=== PATIENT | male | born 2000 | race African-American/Black ===

== ENCOUNTER 2023-07-19 14:11 | Inpatient (IN) ==
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
[2023-07-19] MEDS ORDERED: ACETAMINOPHEN 325 MG TAB PO STA (16:01)
--- NOTE | 2023-07-19 16:04 | XRay Report ---
XR finger(s) LT min 2V HISTORY: 23 years-old Male L index finger acute pain of the left second finger COMPARISON: None TECHNIQUE: 3 views of the left second finger FINDINGS: No acute fracture, dislocation or opaque foreign body. Unremarkable soft tissues. IMPRESSION: Normal exam. ACT 112: Negative or not required by law. The above report was generated using voice recognition software. It may contain grammatical, syntax o r spelling errors. Electronically signed by: Seth Rodriguez M.D. 07/19/2023 4:02 PM
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
[2023-07-19 17:24] LABS: Basophils # (auto) 0.04 K/uL (0.00-0.20); Basophils % (auto) 0.2 %; Eosinophils # (auto) 0.01 K/uL (0.00-0.50); Eosinophils % (auto) 0.1 %; Hematocrit (blood only) 42.9 % (42.0-52.0); Hemoglobin 15.5 g/dl (14.0-18.0); Immature Granulocytes # (auto) 0.05 K/uL (0.01-0.20); Immature Granulocytes % (auto) 0.3 %; Lymphocytes % (auto) 5.4 %; Mean Corpuscular Hemoglobin 31.2 pg (25.0-34.0); Mean Corpuscular Hgb Conc 36.1 g/dL (32.0-36.0); Mean Corpuscular Volume 86.3 fL (80.0-100.0); Monocytes # (auto) 0.92 K/uL (0.11-0.59); Monocytes % (auto) 5.5 %; Neutrophils # (auto) 14.85 K/uL (1.40-6.50); Neutrophils % (auto) 88.5 %; Platelet Count 271 K/uL (130-400); RDW Coefficient of Variation 12.2 % (11.5-14.5); RDW Standard Deviation 38.8 fL (36.4-46.3); Red Blood Count 4.97 M/uL (4.70-6.10); White Blood Count 16.77 K/ul (4.8-10.8)
[2023-07-19 17:33] LABS: Alanine Aminotransferase 21 U/L (7-52); Albumin Globulin Ratio 1.5 (0.9-2); Alkaline Phosphatase 65 U/L (34-104); Anion Gap 7 (3-11); Aspartate Aminotransferase 31 U/L (13-39); BUN Creatinine Ratio 11.3 (10-20); Bilirubin,Total 0.6 mg/dl (0.2-1.0); Blood Urea Nitrogen 11 mg/dl (6-23); Calcium 10.2 mg/dl (8.6-10.3); Carbon Dioxide 29 mmol/L (21-32); Chloride 99 mmol/L (98-107); Est GFR (Non-African American) 109.6 ml/min; Globulin 3.3 gm/dl (2.5-4.0); Glucose 96 mg/dl (70-99(Fasting)); Potassium 4.7 mmol/L (3.5-5.1); Sodium 135 mmol/L (136-145); Total Protein 8.3 gm/dl (6.0-8.3)
[2023-07-19] MEDS ORDERED: OPTIRAY 320 100ml IV ONE (18:03)
[2023-07-19] MEDS ORDERED: DOXYCYCLINE HYCLATE 100 MG CAP PO STA (18:08)
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
[2023-07-19] MEDS ORDERED: ONDANSETRON INJ 2 MG/ML 2 ML VIAL IV STA (18:44)
[2023-07-19] MEDS ORDERED: MoRPHine SULFATE 4 MG/ML 1 ML CARP\\VIAL IV STA ×3 (18:44→23:51)
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
[2023-07-19] MEDS: oxyCODONE HCL IR 5 MG TAB (IMMEDIATE RELEASE) PO PRN (21:42)
[2023-07-19] MEDS: ACETAMINOPHEN 500 MG TAB PO SCH (21:42)
[2023-07-19] MEDS: traZODone HCL 50 MG TAB PO SCH (21:42)
[2023-07-19] MEDS: SERTRALINE HCL 50 MG TABLET PO SCH (21:42)
[2023-07-19] MEDS: FEXOFENADINE HCL 180 MG TAB PO SCH (23:33)
[2023-07-20] MEDS: ACETAMINOPHEN 500 MG TAB PO SCH ×3 (05:27→22:27)
[2023-07-20 07:06] VITALS: RESP 16
[2023-07-20 07:25] LABS: Basophils # (auto) 0.03 K/uL (0.00-0.20); Basophils % (auto) 0.3 %; Eosinophils # (auto) 0.28 K/uL (0.00-0.50); Hematocrit (blood only) 40.2 % (42.0-52.0); Hemoglobin 14.3 g/dl (14.0-18.0); Immature Granulocytes # (auto) 0.03 K/uL (0.01-0.20); Immature Granulocytes % (auto) 0.3 %; Lymphocytes # (auto) 1.71 K/uL (1.20-3.40); Mean Corpuscular Hemoglobin 31.6 pg (25.0-34.0); Mean Corpuscular Hgb Conc 35.6 g/dL (32.0-36.0); Mean Corpuscular Volume 88.9 fL (80.0-100.0); Mean Platelet Volume 8.4 fL (9.4-12.4); Monocytes # (auto) 0.97 K/uL (0.11-0.59); Monocytes % (auto) 10.2 %; Neutrophils # (auto) 6.47 K/uL (1.40-6.50); Neutrophils % (auto) 68.2 %; Platelet Count 256 K/uL (130-400); RDW Coefficient of Variation 12.3 % (11.5-14.5); RDW Standard Deviation 40.4 fL (36.4-46.3); Red Blood Count 4.52 M/uL (4.70-6.10); White Blood Count 9.49 K/ul (4.8-10.8)
[2023-07-20] MEDS: oxyCODONE HCL IR 5 MG TAB (IMMEDIATE RELEASE) PO PRN ×3 (07:41→16:36)
[2023-07-20] MEDS: DOXYCYCLINE HYCLATE 100 MG CAP PO SCH ×2 (07:41→20:01)
[2023-07-20 08:05] LABS: Anion Gap 4 (3-11); Calcium 9.6 mg/dl (8.6-10.3); Carbon Dioxide 31 mmol/L (21-32); Chloride 103 mmol/L (98-107); Potassium 4.4 mmol/L (3.5-5.1); Sodium 138 mmol/L (136-145)
[2023-07-20 08:11] LABS: BUN Creatinine Ratio 10.5 (10-20); Blood Urea Nitrogen 11 mg/dl (6-23); Est GFR (African American) 115.4 ml/min; Est GFR (Non-African American) 99.6 ml/min; Glucose 89 mg/dl (70-99(Fasting))
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
[2023-07-20] MEDS ORDERED: KETOROLAC 30 MG/ML VIAL IV PRN (17:14)
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
[2023-07-20] MEDS: SODIUM CHLORIDE 0.9% 1,000 ML IV SCH (20:01)
[2023-07-20] MEDS: traZODone HCL 50 MG TAB PO SCH (20:02)
[2023-07-20] MEDS: SERTRALINE HCL 50 MG TABLET PO SCH (20:02)
[2023-07-20] MEDS: FEXOFENADINE HCL 180 MG TAB PO SCH (20:02)
[2023-07-20] MEDS: MoRPHine SULFATE 4 MG/ML 1 ML CARP\\VIAL IV PRN (20:03)
[2023-07-20] MEDS: Patient's HEIGHT &/or WEIGHT Needed SCH ×3 (20:03→23:50)
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
[2023-07-21] MEDS: ACETAMINOPHEN 500 MG TAB PO SCH ×2 (05:34→13:49)
[2023-07-21] MEDS: MoRPHine SULFATE 4 MG/ML 1 ML CARP\\VIAL IV PRN (05:42)
[2023-07-21 08:00] VITALS: PULSE 70
[2023-07-21] MEDS: DOXYCYCLINE HYCLATE 100 MG CAP PO SCH (09:09)
[2023-07-21] MEDS: SODIUM CHLORIDE 0.9% 1,000 ML IV SCH (09:14)
[2023-07-21] MEDS ORDERED: KETOROLAC 30 MG/ML VIAL IV PRN (11:39)
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
--- NOTE | 2023-07-21 12:22 | XRay Report ---
XR hand RT min 3V routine, XR hand LT min 3V routine CLINICAL HISTORY: trauma, pain TECHNIQUE: 3 views of the bilateral hands were obtained. Comparison: None available at the time of this dictation. FINDINGS: There is no evidence of an acute fracture. Joint spaces are well-preserved. No soft tissue abnormalit y is seen. IMPRESSION: No evidence of acute bony injury. ACT 112: Negative or not required by law. Electronically signed by: Rufus Levin M.D. 07/21/2023 12:21 PM
--- NOTE | 2023-07-21 13:51 | Magnetic Resonance Report ---
MR brain wo con HISTORY: 23 years-old Male head trauma, headaches, R hand numbness acute headache COMPARISON: Head CT 07/20/2023 TECHNIQUE: Multiplanar multisequence MRI of the brain was obtained without the use of IV contrast. FINDINGS: No restricted diffusion. Midline structures are unremarkable. Mild adenoid tonsillar enlargement. No acute intracranial hemorrhage, midline shift, abnormal extra-axial collection, hydrocephalus or intra -axial mass. No pathologic blooming artifact. Normal volume of the brain parenchyma. There are a few punctate T2/FLAIR hyperintense foci within the subcortical white matter of the frontal lobes, likely of no clinical significance. Cerebral venous sinuses and major arterial flow voids appear patent. Mild mucosal thickening of the p aranasal sinuses. Skull, orbits and soft tissues are unremarkable. IMPRESSION: No acute intracranial abnormality. ACT 112: Negative or not required by law. The above report was generated using voice recognition software. It may contain grammatical, syntax o r spelling errors. Electronically signed by: Seth Rodriguez M.D. 07/21/2023 1:48 PM
--- NOTE | 2023-07-21 15:10 | Magnetic Resonance Report ---
CLINICAL HISTORY: head/neck trauma, R hand numbness TECHNIQUE: MRI of the cervical spine is performed utilizing various T1 and T2 sequences in the axial and sagittal planes. IV contrast was not administered for this examination. Comparison: None available at the time of this dictation. FINDINGS: The alignment is anatomical. C2-C3: Unremarkable. C3-C4: Unremarkable. C4-C5: Unremarkable. C5-C6: Unremarkable. C6-C7: Unremarkable. C7-T1: Unremarkable. The spinal ligaments are intact, without evidence of disruption or abnormal signal intensity. The spi nal cord is normal in signal intensity and there is no evidence of cord edema. There is no evidence o f an extradural, intradural, extramedullary or intramedullary lesion. Visualized soft tissues are nor mal. Visualized brain parenchyma is normal. IMPRESSION: No evidence of cord compression or significant neuroforaminal narrowing. ACT 112: Negative or not required by law. Electronically signed by: Rufus Levin M.D. 07/21/2023 3:09 PM
[2023-07-21 15:57] VITALS: BP 139/70; TEMP 99; O2SAT 99
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
== END 2023-07-21 17:09 | DRG 125 ==
LOC: ED 14:11 → 3W 19:01 → SUATTDRO 19:01 → 3W 21:10 → 3E 07-20 13:16
DX: Y92.143 Cell of prison as the place of occurrence of the external cause; S06.0X0A Concussion without loss of consciousness, initial encounter; R10.84 Generalized abdominal pain; G89.11 Acute pain due to trauma; R07.89 Other chest pain; R51.9 Headache, unspecified; F41.9 Anxiety disorder, unspecified; M25.551 Pain in right hip; S00.93XA Contusion of unspecified part of head, initial encounter; Z88.0 Allergy status to penicillin; Y35.91XA Legal intervention, means unspecified, law enforcement official injured, initial encounter; M25.552 Pain in left hip; Z79.899 Other long term (current) drug therapy; S02.31XA Fracture of orbital floor, right side, initial encounter for closed fracture; M54.89 Other dorsalgia

== ENCOUNTER 2023-10-06 14:55 | Inpatient (IN) ==
[2023-10-06 16:14] LABS: Anion Gap 6 (3-11); Calcium 9.8 mg/dl (8.6-10.3); Carbon Dioxide 29 mmol/L (21-32); Chloride 103 mmol/L (98-107); Potassium 4.2 mmol/L (3.5-5.1); Sodium 138 mmol/L (136-145)
[2023-10-06 16:15] LABS: Basophils # (auto) 0.03 K/uL (0.00-0.20); Basophils % (auto) 0.5 %; Eosinophils # (auto) 0.16 K/uL (0.00-0.50); Eosinophils % (auto) 2.5 %; Hematocrit (blood only) 43.4 % (42.0-52.0); Hemoglobin 15.3 g/dl (14.0-18.0); Immature Granulocytes # (auto) 0.01 K/uL (0.01-0.20); Immature Granulocytes % (auto) 0.2 %; Lymphocytes # (auto) 1.38 K/uL (1.20-3.40); Lymphocytes % (auto) 21.7 %; Mean Corpuscular Hemoglobin 30.7 pg (25.0-34.0); Mean Corpuscular Hgb Conc 35.3 g/dL (32.0-36.0); Mean Platelet Volume 8.9 fL (9.4-12.4); Monocytes # (auto) 0.51 K/uL (0.11-0.59); Neutrophils # (auto) 4.28 K/uL (1.40-6.50); Neutrophils % (auto) 67.1 %; Platelet Count 289 K/uL (130-400); RDW Coefficient of Variation 11.5 % (11.5-14.5); RDW Standard Deviation 37.1 fL (36.4-46.3); Red Blood Count 4.99 M/uL (4.70-6.10); White Blood Count 6.37 K/ul (4.8-10.8)
--- NOTE | 2023-10-06 16:15 | XRay Report ---
XR knee LT 4V HISTORY: 23 years-old Male L knee pain acute left knee pain COMPARISON: None TECHNIQUE: 3 views of the left knee FINDINGS: There is mild medial compartment osteoarthritis. 8 mm lucent focus of the medial femoral condyle. Sma ll joint effusion. No acute fracture or dislocation. IMPRESSION: 1. No acute fracture or dislocation. 2. Mild medial compartment osteoarthritis with possible medial femoral condylar osteochondral defect. 3. Small joint effusion. ACT 112: Negative or not required by law. The above report was generated using voice recognition software. It may contain grammatical, syntax o r spelling errors. Electronically signed by: Seth Rodriguez M.D. 10/06/2023 4:14 PM
--- NOTE | 2023-10-06 16:16 | CT Scan Report ---
CT OF THE HEAD WITHOUT CONTRAST CLINICAL HISTORY: syncope vs seizure COMPARISON STUDY: MRI of the brain July 21, 2023. Head CT September 08, 2023. TECHNIQUE: Helical axial images of the head were obtained without IV contrast. Automated exposure con trol was utilized for the study. A dose lowering technique was utilized adhering to the principles o f ALARA. FINDINGS: No acute intracranial hemorrhage, midline shift or mass effect is present. The ventricular system is unremarkable. The basal cisterns are patent. No extra-axial collections are present. There are no findings to suggest acute dural sinus thrombosis or acute territorial infarct. Small left fore head contusion is present. There is no calvarial fracture. Mucosal thickening within visualized porti ons of the sinuses is unchanged. IMPRESSION: 1. No acute intracranial findings. 2. Small left forehead contusion. No calvarial fracture. ACT 112: Negative or not required by law. Electronically signed by: Louis Hall M.D. 10/06/2023 4:15 PM
[2023-10-06 16:20] LABS: BUN Creatinine Ratio 12.4 (10-20); Blood Urea Nitrogen 13 mg/dl (6-23); Est GFR (African American) 115.4 ml/min; Est GFR (Non-African American) 99.6 ml/min; Glucose 80 mg/dl (70-99(Fasting))
[2023-10-06 16:23] LABS: INR 1.1 (0.9-1.1); Partial Thromboplastin Ratio 0.9; Partial Thromboplastin Time 26 Seconds (21-31); Prothrombin Time 11.6 Seconds (9.0-12.0); Troponin I High Sensitivity < 2.3 pg/ml (0-20)
--- NOTE | 2023-10-06 16:28 | CT Scan Report ---
CT cervical spine wo con CLINICAL HISTORY: syncope vs seziure TECHNIQUE: Multidetector row helical CT of the cervical spine was performed without administration of intravenous contrast. Coronal and sagittal reformations were obtained. Automated dose lowering techn iques and/or adjustment according to patient size were utilized for this exam. Comparison: Comparison is made to CT cervical spine 08/31/2023 FINDINGS: No acute fractures or subluxations are identified. Minimal degenerative changes are seen. The alignme nt is normal. Soft tissues are unremarkable. IMPRESSION: No evidence of acute bony injury. ACT 112: Negative or not required by law. Electronically signed by: Rufus Levin M.D. 10/06/2023 4:27 PM
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
[2023-10-06] MEDS ORDERED: ONDANSETRON INJ 2 MG/ML 2 ML VIAL IV PRN (17:35)
[2023-10-06] MEDS ORDERED: POLYETHYLENE (MIRALAX) 17 GM PACK PO PRN (17:35)
--- NOTE | 2023-10-06 20:07 | Electrocardiogram Report ---
Test Reason : Blood Pressure : / mmHG Vent. Rate : 083 BPM Atrial Rate : 083 BPM P-R Int : 164 ms QRS Dur : 088 ms QT Int : 366 ms P-R-T Axes : 068 089 071 degrees QTc Int : 430 ms Normal sinus rhythm Normal ECG When compared with ECG of 08-SEP-2023 16:41, Nonspecific T wave abnormality no longer evident in Inferior leads Confirmed by Carl Corcoran ([id number]) on 10/06/2023 8:07:15 PM Referred By: Confirmed By:Nirmal Corcoran
[2023-10-06] MEDS: MIRTAZAPINE TAB 15 MG TAB PO SCH (20:45)
[2023-10-06] MEDS: NAPROXEN 375 MG TAB PO PRN (20:45)
[2023-10-06] MEDS: OLANZapine 5 MG TABLET PO SCH (20:45)
[2023-10-06] MEDS: GADOBUTROL 65ML VIAL IV ONE (23:39)
--- NOTE | 2023-10-07 00:05 | Emergency Department Note ---
History of Present Illness General Chief complaint: Fall Stated complaint: SEIZURE, FALL Time Seen by Provider: 10/06/23 15:12 History of Present Illness Provider complaint: Syncope versus seizure Maximum Pain Intensity: 10 23-year-old incarcerated male presents emergency department for syncope versus seizure. Earlier today, the patient states he was working out doing squats and [employer] when then he felt his left knee started hurting. Patient states the next he knew he woke up on the floor. Patient states he is not sure what happened. Patient reports that inmates around him thought he was having a seizure and was shaking with seizure-like activity. Patient is currently reporting headache and neck pain. No tongue bite. No urinary incontinence. No chest pain or difficulty breathing. Patient reports a history of seizure disorder. Home Medications Medication Instructions Recorded Confirmed Type mirtazapine 30 mg tablet 30 mg PO HS 09/08/23 10/06/23 History olanzapine 5 mg tablet 5 mg PO HS 09/08/23 10/06/23 History ibuprofen 600 mg tablet 600 mg PO TID PRN Pain 10/06/23 10/06/23 History meclizine 25 mg chewable tablet 25 mg PO TID PRN Vertigo 10/06/23 10/06/23 History Allergies Allergy/AdvReac Type Severity Reaction Status Date / Time Penicillins Allergy Unknown CHILDHOOD Verified 10/06/23 17:22 Past Med/Surg History Medical History Mood disorder Head injury due to trauma Closed fracture of right orbital floor Hematoma of right parietal scalp Contusion of head History of marijuana use Anxiety Surgical History Hx of tonsillectomy Family History Other Diabetes Hypertension Social History Smoking Status: Former smoker Second Hand Exposure: No; Do You Dip or Chew Tobacco: No; Tobacco Cessation Education Requested by Patient: No Hx Alcohol Use: No Hx Substance Use: Yes Preferred Language: Telugu Communication Ability: Effective Display Department Manager Required: No Beliefs That Will Affect Care: None Current Living Situation: Other Current Living Situation Comment: Correctional institution Other Information That Helps Us Care for You: No Feels Safe at Home: Yes Assistive Devices: None Physical Exam Vital Signs Vital Signs - 24 hr 10/06/23 15:01 10/06/23 15:12 10/06/23 15:38 Temperature 36.6 C Temperature Source Oral Pulse Rate 95 H 78 Pulse Rate [Apical] Respiratory Rate 20 18 18 Respiratory Effort / Characteristics Respiratory Depth Blood Pressure 141/103 H Blood Pressure [Right Arm] Blood Pressure Mean 115 Blood Pressure Mean [Right Arm] Pulse Oximetry 97 100 100 Oxygen Delivery Method Room Air Room Air Room Air Sepsis Recent Fever Within 48 Hours No Sepsis New/Unexplained Change in Mental Status No Sepsis Action Taken by Nursing No Action Required 10/06/23 15:38 10/06/23 16:23 10/06/23 17:00 Temperature Temperature Source Pulse Rate 89 Pulse Rate [Apical] 95 H Respiratory Rate 18 Respiratory Effort / Characteristics Non-Labored Respiratory Depth Normal Blood Pressure Blood Pressure [Right Arm] 136/99 136/99 Blood Pressure Mean Blood Pressure Mean [Right Arm] 111 111 Pulse Oximetry 99 Oxygen Delivery Method Sepsis Recent Fever Within 48 Hours Sepsis New/Unexplained Change in Mental Status Sepsis Action Taken by Nursing Physical Exam GENERAL: Patient in handcuffs with officers surrounding him. HENT: Exam performed. - Head: Hematoma and abrasion over the patient's left forehead. - Right Ear: External ear normal. No mastoid erythema - Left Ear: External ear normal. No mastoid erythema - Mouth/Throat: The oropharynx is clear and moist. No trismus in the jaw. No dental abscesses or uvula swelling. No oropharyngeal exudate or tonsillar abscesses. No evidence of tongue bite. EYES: Conjunctivae and EOM are normal. Pupils are equal, round, and reactive to light. Right eye exhibits no discharge. Left eye exhibits no discharge. No scleral icterus. NECK: Patient in c-collar. No pain on palpation of the C-spine. CV: Normal rate, regular rhythm, normal heart sounds and intact distal pulses. There is no peripheral edema. Palpable radial pulses bue. PULM/CHEST: Effort normal and breath sounds normal. No respiratory distress. No stridor. He has no wheezes. He has no rales. - Chest Wall: He exhibits no tenderness. ABD: The abdomen is soft. MUSC/SKEL: Pelvis stable. Pain on palpation of the left knee. NEURO: He is alert and oriented to person, place, and time. Motor and sensation grossly intact. No cranial nerve deficit. Course Course 151: The patient was evaluated in room A9. A complete history and physical exam was performed Cardiac monitoring: An order was placed for continuous cardiac monitoring. The monitor shows a rate of 80 with sinus rhythm interpreted by me 1701: Vital signs stable. Labs within normal limits with exception of a mildly elevated prolactin level. Discussed case with neurology on-call Dr. Amador. She states that she would not recommend seizure medications at this time but would recommend an MRI and EEG. Is unclear if the patient had a seizure or syncopal episode. Patient will be admitted for neurology recommendations MRI and EEG as well as to rule out any cardiac causes of possible syncopal episode such as an echocardiogram. Patient [facility] be [facility] to the [facility]. Administered Medications Gadobutrol (Gadobutrol 65ml Vial) 7.5 ml IV ONCE ONE Stop: 10/06/23 23:39 Last Admin: 10/06/23 23:39 Dose: 7.5 ml Documented By: MARJORIE Mirtazapine (Mirtazapine Tab 15 Mg Tab) 30 mg PO HS MEENA Stop: 11/05/23 20:59 Last Admin: 10/06/23 20:45 Dose: 30 mg Documented By: NAI Naproxen (Naproxen 375 Mg Tab) 375 mg PO BID PRN PRN Reason: Pain or Fever Stop: 11/05/23 17:38 Last Admin: 10/06/23 20:45 Dose: 375 mg Documented By: NAI Olanzapine (Olanzapine 5 Mg Tablet) 5 mg PO [facility] Stop: 11/05/23 20:59 Last Admin: 10/06/23 20:45 Dose: 5 mg Documented By: NAI Medical Decision Making Medical Records Attestation: I reviewed the patient's medical records. External medical records reviewed. Patient was seen for similar episode in August 2023. Patient has a reported history of seizure-like activity however the medical paperwork from the skilled nursing shows that the patient is only on meclizine mirtazapine and olanzapine no antiepileptics. Laboratory Data Attestation: I reviewed the patient's lab results. 10/06/23 15:22 10/06/23 15:22 Lab Results 10/06/23 10/06/23 Range/Units 15:22 15:36 WBC 6.37 (4.8-10.8) K/ul RBC 4.99 (4.70-6.10) M/uL Hgb 15.3 (14.0-18.0) g/dl Hct 43.4 (42.0-52.0) % MCV 87.0 (80.0-100.0) fL MCH 30.7 (25.0-34.0) pg MCHC 35.3 (32.0-36.0) g/dL RDW Std Deviation 37.1 (36.4-46.3) fL RDW Coeff of Kath 11.5 (11.5-14.5) % Plt Count 289 (130-400) K/uL MPV 8.9 L (9.4-12.4) fL Immature Gran % (Auto) 0.2 % Neut % (Auto) 67.1 % Lymph % (Auto) 21.7 % [place] % (Auto) 8.0 % Eos % (Auto) 2.5 % Baso % (Auto) 0.5 % Neut # (Auto) 4.28 (1.40-6.50) K/uL Lymph # (Auto) 1.38 (1.20-3.40) K/uL [place] # (Auto) 0.51 (0.11-0.59) K/uL Eos # (Auto) 0.16 (0.00-0.50) K/uL Baso # (Auto) 0.03 (0.00-0.20) K/uL Immature Gran # (Auto) 0.01 (0.01-0.20) K/uL PT 11.6 (9.0-12.0) Seconds INR 1.1 (0.9-1.1) APTT 26 (21-31) Seconds PTT Ratio 0.9 Sodium 138 (136-145) mmol/L Potassium 4.2 (3.5-5.1) mmol/L Chloride 103 (98-107) mmol/L Carbon Dioxide 29 (21-32) mmol/L Anion Gap 6 (3-11) BUN 13 (6-23) mg/dl Creatinine 1.05 (0.6-1.4) mg/dl Est Cr Clr Drug Dosing 113.0 ml/min Est GFR ( Amer) 115.4 ml/min Est GFR (Non-Af Amer) 99.6 ml/min BUN/Creatinine Ratio 12.4 (10-20) Glucose 80 (70-99(Fasting)) mg/dl POC Glucose 74 (70-99) mg/dl Calcium 9.8 (8.6-10.3) mg/dl Troponin I High Sens < 2.3 (0-20) pg/ml Prolactin 16.30 ng/ml Imaging Data Attestation: I personally reviewed and interpreted this imaging study as follows: My Impression: Left knee: No patella dislocation fracture or dislocation. Radiologist's Impression: Cervical Spine CT 10/06/23 15:28 CT cervical spine wo con CLINICAL HISTORY: syncope vs seziure TECHNIQUE: Multidetector row helical CT of the cervical spine was performed without administration of intravenous contrast. Coronal and sagittal reformations were obtained. Automated dose lowering techniques and/or adjustment according to patient size were utilized for this exam. Comparison: Comparison is made to CT cervical spine 08/31/2023 FINDINGS: No acute fractures or subluxations are identified. Minimal degenerative changes are seen. The alignment is normal. Soft tissues are unremarkable. IMPRESSION: No evidence of acute bony injury. ACT 112: Negative or not required by law. Electronically signed by: Rufus Levin M.D. 10/06/2023 4:[address] 10/06/23 15:28 CT OF THE HEAD WITHOUT CONTRAST CLINICAL HISTORY: syncope vs seizure COMPARISON STUDY: MRI of the brain July 21, 2023. Head CT September 08, 2023. TECHNIQUE: Helical axial images of the head were obtained without IV contrast. Automated exposure control was utilized for the study. A dose lowering technique was utilized adhering to the principles of ALARA. FINDINGS: No acute intracranial hemorrhage, midline shift or mass effect is present. The ventricular system is unremarkable. The basal cisterns are patent. No extra-axial collections are present. There are no findings to suggest acute dural sinus thrombosis or acute territorial infarct. Small left forehead contusion is present. There is no calvarial fracture. Mucosal thickening within visualized portions of the sinuses is unchanged. IMPRESSION: 1. No acute intracranial findings. 2. Small left forehead contusion. No calvarial fracture. ACT 112: Negative or not required by law. Electronically signed by: Louis Hall M.D. 10/06/2023 4:15 PM Knee X-Ray 10/06/23 15:28 XR knee LT 4V HISTORY: 23 years-old Male L knee pain acute left knee pain COMPARISON: None TECHNIQUE: 3 views of the left knee FINDINGS: There is mild medial compartment osteoarthritis. 8 mm lucent focus of the medial femoral condyle. Small joint effusion. No acute fracture or dislocation. IMPRESSION: 1. No acute fracture or dislocation. 2. Mild medial compartment osteoarthritis with possible medial femoral condylar osteochondral defect. 3. Small joint effusion. ACT 112: Negative or not required by law. The above report was generated using voice recognition software. It may contain grammatical, syntax or spelling errors. Electronically signed by: Seth Rodriguez M.D. 10/06/2023 4:14 PM ECG Data Attestation: I personally reviewed and interpreted this ECG as follows: Rate (beats per minute): 83 Rhythm: + normal sinus ECG Intervals/blocks: + Normal QRS, + Normal ID and + Normal QT-c ECG ST segments: + Normal ST segments [facility] Narrative 1512: The patient was evaluated in room A9. A complete history and physical exam was performed Cardiac monitoring: An order was placed for continuous cardiac monitoring. The monitor shows a rate of 80 with sinus rhythm interpreted by me 1701: Vital signs stable. Labs within normal limits with exception of a mildly elevated prolactin level. Discussed case with neurology on-call Dr. Amador. She states that she would not recommend seizure medications at this time but would recommend an MRI and EEG. Is unclear if the patient had a seizure or syncopal episode. Patient will be admitted for neurology recommendations MRI and EEG as well as to rule out any cardiac causes of possible syncopal episode such as an echocardiogram. Patient will be admitted to the [facility] team. Impression & Plan Syncope, Seizure-like activity Discharge Plan Visit Data Chief Complaint: Fall Stated Complaint: SEIZURE, FALL ED Provider: Parker Milan Discharge Problem: Syncope, Seizure-like activity Patient Disposition: Admitted As Inpatient Discharge Instructions Interventions: ED Discharge Assessment Last Done: 10/06/23 19:03
--- NOTE | 2023-10-07 00:49 | Magnetic Resonance Report ---
Exam(s): MRI HEAD W/WO Contrast IV Amt: 7.5cc gadavist EXAM: MR Head Without and With Intravenous Contrast CLINICAL HISTORY: Reason for exam: seizure vs syncope. TECHNIQUE: Magnetic resonance images of the head/brain without and with intravenous contrast in multiple planes. CONTRAST: Patient received 7.5cc gadavist of IV contrast COMPARISON: Comparison made to prior brain MRI from July 21, [address] from October 06, 2023. FINDINGS: Brain: Unremarkable. No mass. No hemorrhage. No acute infarct. The flow voids at the base of the brain are intact. Normal enhancement. The dural venous sinuses are patent. Ventricles: Unremarkable. No ventriculomegaly. Bones/joints: Unremarkable. No acute fracture. Sinuses: Chronic pansinusitis. No acute sinusitis. Mastoid air cells: Unremarkable as visualized. No mastoid effusion. Orbits: Unremarkable as visualized. IMPRESSION: No evidence of acute intracranial pathology. Electronically signed by: Amy Caballero MD 10/07/23 00:48 AM
[2023-10-07 10:05] LABS: Hematocrit (blood only) 42.5 % (42.0-52.0); Hemoglobin 14.4 g/dl (14.0-18.0); Mean Corpuscular Hemoglobin 30.3 pg (25.0-34.0); Mean Corpuscular Hgb Conc 33.9 g/dL (32.0-36.0); Mean Corpuscular Volume 89.3 fL (80.0-100.0); Mean Platelet Volume 8.8 fL (9.4-12.4); Platelet Count 270 K/uL (130-400); RDW Coefficient of Variation 11.7 % (11.5-14.5); RDW Standard Deviation 37.8 fL (36.4-46.3); Red Blood Count 4.76 M/uL (4.70-6.10); White Blood Count 6.59 K/ul (4.8-10.8)
[2023-10-07 10:14] LABS: BUN Creatinine Ratio 13.9 (10-20); Calcium 9.6 mg/dl (8.6-10.3); Creatinine Clr Calc Pharmacy 105.5 ml/min; Est GFR (African American) 111.5 ml/min; Est GFR (Non-African American) 96.2 ml/min
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
--- NOTE | 2023-10-07 15:06 | Magnetic Resonance Report ---
MR knee LT wo con CLINICAL HISTORY: pain left knee with locking TECHNIQUE: Multiplanar, multisequence images of the left knee were obtained. Comparison: Comparison is made to knee radiographs 10/06/2023 FINDINGS: The biceps femoris tendon, quadriceps mechanism and patellar tendons are intact. The medial and later al collateral ligaments are intact. Diminutive appearance of the anterior cruciate ligament raises co ncern for a partial-thickness tear. There is thinning of the medial meniscus with a possible tear. Ch ondromalacia is seen in the medial meniscus with a focal defect in the medial femoral condyle. There is small joint effusion. Complex lesion in the femoral notch is nonspecific but may represent a menis mahamed cyst. IMPRESSION: 1. Osteochondral defect in the medial femoral condyle with underlying bony edema. 2. There is likely a small medial meniscal tear with associated meniscal cyst. 3. Questionable partial thickness tear of the anterior cruciate ligament. ACT 112: Negative or not required by law. Electronically signed by: Rufus Levin M.D. 10/07/2023 3:04 PM
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
[2023-10-07] MEDS: ACETAMINOPHEN 325 MG TAB PO PRN (20:17)
[2023-10-08 06:09] LABS: Hematocrit (blood only) 42.7 % (42.0-52.0); Hemoglobin 14.3 g/dl (14.0-18.0); Mean Corpuscular Hgb Conc 33.5 g/dL (32.0-36.0); Mean Corpuscular Volume 89.7 fL (80.0-100.0); Mean Platelet Volume 8.9 fL (9.4-12.4); Platelet Count 274 K/uL (130-400); RDW Coefficient of Variation 11.9 % (11.5-14.5); RDW Standard Deviation 38.8 fL (36.4-46.3); Red Blood Count 4.76 M/uL (4.70-6.10); White Blood Count 8.91 K/ul (4.8-10.8)
[2023-10-08 06:15] LABS: BUN Creatinine Ratio 14.8 (10-20); Calcium 9.5 mg/dl (8.6-10.3); Creatinine Clr Calc Pharmacy 105.5 ml/min; Est GFR (African American) 111.5 ml/min; Est GFR (Non-African American) 96.2 ml/min; Potassium 4.3 mmol/L (3.5-5.1)
--- NOTE | 2023-10-08 11:33 | Electroencephalogram ---
EEG Procedure Note Date of Service October 08, 2023 Start / End Times Start Time: 06:58 End Time: 07:18 Referring Physician Taya Monahan History A 23 year old male with loss of conciousness. EEG performed for evaluation of epileptiform activity. Home Medication List Medication Instructions Recorded Confirmed Type mirtazapine 30 mg tablet 30 mg PO HS 09/08/23 10/06/23 History olanzapine 5 mg tablet 5 mg PO HS 09/08/23 10/06/23 History ibuprofen 600 mg tablet 600 mg PO TID PRN Pain 10/06/23 10/06/23 History meclizine 25 mg chewable tablet 25 mg PO TID PRN Vertigo 10/06/23 10/06/23 History Inpatient Medication List Acetaminophen (Acetaminophen 325 Mg Tab) 650 mg PO Q4H PRN PRN Reason: Pain or Fever Stop: 11/05/23 17:34 Last Admin: 10/08/23 08:54 Dose: 650 mg Documented By: Admin: 10/07/23 20:17 Dose: 650 mg Documented By: CHARLIE Mirtazapine (Mirtazapine Tab 15 Mg Tab) 30 mg PO [facility] Stop: 11/05/23 20:59 Last Admin: 10/07/23 20:18 Dose: 30 mg Documented By: Admin: 10/06/23 20:45 Dose: 30 mg Documented By: NAI Naproxen (Naproxen 375 Mg Tab) 375 mg PO BID PRN PRN Reason: Pain or Fever Stop: 11/05/23 17:38 Last Admin: 10/08/23 08:54 Dose: 375 mg Documented By: Admin: 10/07/23 20:17 Dose: 375 mg Documented By: Admin: 10/07/23 09:57 Dose: 375 mg Documented By: Admin: 10/06/23 20:45 Dose: 375 mg Documented By: NAI Olanzapine (Olanzapine 5 Mg Tablet) 5 mg PO [facility] Stop: 11/05/23 20:59 Last Admin: 10/07/23 20:17 Dose: 5 mg Documented By: Admin: 10/06/23 20:45 Dose: 5 mg Documented By: NAI Discontinued Medications Gadobutrol (Gadobutrol 65ml Vial) 7.5 ml IV ONCE ONE Stop: 10/06/23 23:39 Last Admin: 10/06/23 23:39 Dose: 7.5 ml Documented By: MARJORIE Description This is a 21 electrode EEG with a single channel dedicated to limited EKG. The electrodes were placed in accordance with the International 10-20 system. REPORT: At the onset of the EEG, the patient is awake. The background activity consist of 9-10Hz, persistent, posteriorly dominant, moderate amplitude, symmetric and rhythmic activity that is reactive to eye opening. Anteriorly, it consist of a mixture of low voltage indeterminate activity and 15-25 Hz, persistent, low amplitude, symmetric and rhythmic activity. Stepwise intermittent photic stimulation (1-21 Hz) does not induce any abnormalities. Drowsiness is characterized by low amplitude mixed frequency activity, roving eye movements, and decreased eye blinking and muscle artifact. Interpretation IMPRESSION: This is a normal awake and drowsy routine EEG. There is no evidence of focal slowing or epileptiform activity.
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
--- NOTE | 2023-10-09 12:57 | Communication Note ---
Date of Service: October 09, 2023 Neurology Update: EEG was normal with no evidence of focal slowing or epileptiform activity. MRI brain w/wo with no acute intracranial findings. Clinical history of events is most suggestive of syncope, although there was one possible seizure in July. Would consider cardiology consultation, tilt table testing, zio patch, and ambulatory EEG if feasible. Pending further evaluation, if no cardiac cause identified, may be reasonable to trial ASM with keppra 500 mg bid as some of the events have been unwitnessed.
== END 2023-10-09 15:30 | DRG 103 ==
LOC: ED 14:55 → EDINP 17:14 → SUATTDRO 17:14 → 2S 18:11

== ENCOUNTER 2025-07-15 11:21 | Inpatient (IN) ==
[2025-07-15 13:14] LABS: Alanine Aminotransferase 16.0 U/L (7-52); Albumin Globulin Ratio 1.5 (0.9-2); Albumin Level 5.0 gm/dl (3.4-5.0); Alkaline Phosphatase 68.0 U/L (34-104); Anion Gap 7.0 (3-11); Bilirubin,Total 0.7 mg/dl (0.2-1.0); Blood Urea Nitrogen 11.0 mg/dl (6-23); Calcium 10.2 mg/dl (8.6-10.3); Carbon Dioxide 27.0 mmol/L (21-32); Chloride 101.0 mmol/L (98-107); Creatinine Clr Calc Pharmacy 97.8 ml/min; Globulin 3.4 gm/dl (2.5-4.0); Glucose 95.0 mg/dl (70-99(Fasting)); Potassium 4.6 mmol/L (3.5-5.1); Sodium 135.0 mmol/L (136-145); Total Protein 8.4 gm/dl (6.0-8.3)
[2025-07-15 13:17] LABS: Hematocrit (blood only) 46.7 % (42.0-52.0); Hemoglobin 15.9 g/dl (14.0-18.0); Immature Granulocytes # (auto) 0.03 K/uL (0.01-0.20); Immature Granulocytes % (auto) 0.3 %; Mean Corpuscular Hemoglobin 29.8 pg (25.0-34.0); Mean Corpuscular Volume 87.5 fL (80.0-100.0); Platelet Count 288 K/uL (130-400); RDW Standard Deviation 39.3 fL (36.4-46.3); Red Blood Count 5.34 M/uL (4.70-6.10); White Blood Count 9.48 K/ul (4.8-10.8)
--- NOTE | 2025-07-15 14:28 | CT Scan Report ---
CT SCAN OF THE BRAIN WITHOUT IV CONTRAST CLINICAL HISTORY: Headache. COMPARISON STUDY: CT and MRI of the brain dated 10/06/2023. TECHNIQUE: Unenhanced CT scan of the brain is performed from the vertex to the skull base. Images are reviewed in the axial, sagittal, and coronal planes. A dose lowering technique was utilized adherin g to the principles of ALARA. CT DOSE: 625.8 mGy.cm FINDINGS: Brain parenchyma: The brain parenchyma is normal in appearance. There is no hemorrhage, mass effect, or evidence of acute territorial ischemia by CT criteria. Lutz-white matter differentiation is preser geoffrey. No extra-axial fluid collection is seen. Ventricles, sulci, cisterns: Normal in configuration. Intracranial vasculature: The visualized intracranial vasculature at the skull base is normal in appe arance. Calvarium: Unremarkable. Sinuses and mastoids: There is moderate mucosal thickening within the right frontal sinus and the eth moid sinuses. Mild mucosal thickening is seen within the left sphenoid sinus and the left frontal sin us. The mastoid air cells are well pneumatized. Orbits: The bony orbits are grossly intact. IMPRESSION: No acute intracranial abnormality. ACT 112: Negative or not required by law. Electronically signed by: Shubham Barr M.D. 07/15/2025 2:26 PM
[2025-07-15] MEDS: ACETAMINOPHEN 1,000 MG/100 ML VIAL IV STA (14:33)
[2025-07-15] MEDS: ONDANSETRON INJ 2 MG/ML 2 ML VIAL IV STA (14:34)
[2025-07-15] MEDS: diphenhydrAMINE 50 MG/ML VIAL IV STA (14:34)
[2025-07-15] MEDS: KETOROLAC TROMETHAMINE 15 MG/ML VIAL IV ONE (14:34)
[2025-07-15] MEDS: SODIUM CHLORIDE 0.9% 1,000 ML IV ONE (14:34)
--- NOTE | 2025-07-15 14:37 | Emergency Department Note ---
Impression & Plan Headache, Meningitis ED Provider Note NAME: ANT [id number] GUMARO AGE: 25 SEX: M : 2000 ARRIVES VIA: Walk-In INFORMANT: [Patient] ED PROVIDER(S): [Shubham Cabral MD] CHIEF COMPLAINT: Illness HISTORY OF PRESENT ILLNESS: The patient is a 25-year-old [facility] The patient has had 2 days of a headache, dizziness, neck pain, chills and nausea. There was concern for the possibility of meningitis and he was brought in for evaluation. There has been no vomiting or diarrhea. No sick contacts. No cough or congestion or chest pain. The patient states that hurts to move his neck in any direction, the muscle seemed quite stiff and sore. PMHx/PSHx/Social Hx: See Below PHYSICAL EXAM: GENERAL: Patient is in no acute distress. HEENT: No acute trauma, normocephalic atraumatic, mucous membranes moist, no nasal congestion. NECK: No stridor, no adenopathy, trachea is midline. The patient does have soreness to palpate all of the posterior neck musculature and the trapezius musculature. He does have discomfort to flex the chin to the chest or even to turn the head [id number]. LUNGS: Clear to auscultation bilaterally, no wheeze, no rhonchi, breath sounds equal. HEART: Without murmurs gallops or rubs, regular rate and rhythm. ABDOMEN: Soft, nontender, no peritonitis. EXTREMITIES: No cyanosis, full range of motion of all the joints without pain or difficulty. NEUROLOGIC: Oriented x 3, no acute motor or sensory deficits, no focal weakness. SKIN: No jaundice, no diaphoresis. DIFFERENTIAL DIAGNOSIS: Musculoskeletal pain, viral illness, dehydration, meningitis, intracranial bleeding, among others. EMERGENCY DEPARTMENT PROCEDURES: Lumbar puncture: This procedure was performed by me. Risks and benefits of the procedure were discussed. Verbal consent was obtained. Patient was placed seated on the stretcher. Lumbar landmarks were identified. Betadine was used for prep. Sterile drapes were applied. Using sterile technique, lidocaine was used to anesthetize the lumbar area. Using sterile technique, I was able to access the spinal canal with a 20-gauge spinal needle. There were no complications. Fluid was collected for analysis and sent to the lab. Patient tolerated the procedure well. MEDICAL DECISION MAKING: There is no leukocytosis or concerning anemia. There is a normal platelet count. No bandemia. No renal failure or significant electrolyte abnormality. No concerning liver enzyme elevation. COVID, influenza and RSV test were negative. Anaplasmosis and Babesia smears were negative. Lyme disease testing was negative. Brain CT showed no acute bleed or mass effect. On exam, the patient was not toxic or febrile. He had some neck stiffness to move the neck in any direction. The posterior neck musculature was tender to palpate. A lumbar puncture was performed. Initial results returned showing a form of viral meningitis. 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 The patient received IV saline, 1.5 L. He was given IV Zofran, IV Toradol, IV Benadryl and IV Tylenol. He received IV ceftriaxone, IV Decadron and IV acyclovir. Given his findings and presentation, I do think a hospital stay is warranted. Further IV antivirals are required, further symptom control is required. I spoke with the patient, I spoke with the guards. I spoke with case management. The on-call hospitalist was consulted. Prior/Outside records/notes reviewed: [facility] describing his presentation, their concerns and the need for transfer. Imaging/x-ray results per my interpretation: Chronic Medical/Social conditions affecting care: Currently incarcerated Care/Management discussed with: Staff at the local [facility]. Level of care consideration(s): After review of the information above and other included data: --I believe the patient requires escalation of care to admission DISPOSITION: Admission Past Med/Surg History Problem List Meningitis (Acute) Headache (Acute) Syncope and collapse Post concussive syndrome Mood disorder Left knee pain Diplopia Contusion of head Medical History Encounter for pre-operative examination Anxiety disorder, unspecified Hx of head injury due to trauma Mood disorder Post concussion syndrome (07/2023) hx- seen by neuro at [facility] Hx of syncope (07/2023) seen at [facility] ed Inmate in correctional facility [facility] Closed fracture of right orbital floor (07/2023) hx- due to syncopal episode, seen at [facility] ed History of marijuana use Surgical History Hx of tonsillectomy Family History Other Diabetes Hypertension Social History Smoking Status: Never smoker Hx Substance Use: Yes Substance Use Type Other:: unk if other drugs Preferred Language: Azeri Communication Ability: Effective Communication Ability Comment: unk Hospitality Director Required: No Beliefs That Will Affect Care: None Current Living Situation: Other Current Living Situation Comment: [facility] Feels Safe at Home: Yes Assistive Devices: None Allergies Allergies Allergy/AdvReac Type Severity Reaction Status Date / Time Penicillins Allergy Unknown CHILDHOOD Verified 07/15/25 17:33 Home Meds Home Medications Medication Instructions Recorded Confirmed acetaminophen 500 mg tablet 1,000 mg PO DAILY 07/15/25 07/15/25 (Tylenol Extra Strength) ketorolac 30 mg/mL (1 mL) 30 mg IM DAILY 07/15/25 07/15/25 injection solution mirtazapine 45 mg tablet 45 mg PO HS 07/15/25 07/15/25 Results & Data (ED) Vital Signs Vital Signs - 24 hr 07/15/25 11:29 07/15/25 12:35 07/15/25 12:42 Temperature 37.1 C Temperature Source Temporal Artery Scan Pulse Rate 81 71 65 Pulse Rate [Left Apical] Pulse Rate from SpO2 Sensor 65 Respiratory Rate 18 18 Respiratory Effort / Characteristics Non-Labored Spontaneous Respiratory Depth Normal Respiratory Pattern Blood Pressure 139/95 143/101 H Blood Pressure [Right Arm] Blood Pressure Mean 109 115 Blood Pressure Mean [Right Arm] Blood Pressure Position Sitting Pulse Oximetry 100 97 Oxygen Delivery Method Room Air Room Air Sepsis Recent Fever Within 48 Hours Yes Sepsis New/Unexplained Change in Mental Status No Sepsis Action Taken by Nursing No Action Required 07/15/25 12:51 07/15/25 13:36 07/15/25 14:30 Temperature Temperature Source Pulse Rate 68 72 72 Pulse Rate [Left Apical] Pulse Rate from SpO2 Sensor 67 72 Respiratory Rate 17 21 19 Respiratory Effort / Characteristics Respiratory Depth Respiratory Pattern Blood Pressure 147/99 H 138/96 Blood Pressure [Right Arm] Blood Pressure Mean 115 110 Blood Pressure Mean [Right Arm] Blood Pressure Position Pulse Oximetry 97 97 98 Oxygen Delivery Method Room Air Room Air Sepsis Recent Fever Within 48 Hours Sepsis New/Unexplained Change in Mental Status Sepsis Action Taken by Nursing 07/15/25 15:32 07/15/25 16:09 07/15/25 16:33 Temperature Temperature Source Pulse Rate 64 63 Pulse Rate [Left Apical] 65 Pulse Rate from SpO2 Sensor Respiratory Rate 21 23 14 Respiratory Effort / Characteristics Non-Labored Spontaneous Respiratory Depth Normal Respiratory Pattern Regular Blood Pressure 145/80 H 134/81 Blood Pressure [Right Arm] 145/82 H Blood Pressure Mean 101 98 Blood Pressure Mean [Right Arm] 103 Blood Pressure Position Pulse Oximetry 96 97 97 Oxygen Delivery Method Room Air Room Air Room Air Sepsis Recent Fever Within 48 Hours Sepsis New/Unexplained Change in Mental Status Sepsis Action Taken by Nursing 07/15/25 16:59 07/15/25 17:00 07/15/25 17:48 Temperature Temperature Source Pulse Rate 63 69 Pulse Rate [Left Apical] 74 Pulse Rate from SpO2 Sensor Respiratory Rate 15 17 Respiratory Effort / Characteristics Non-Labored Spontaneous Respiratory Depth Normal Respiratory Pattern Regular Blood Pressure 136/82 Blood Pressure [Right Arm] 167/103 H Blood Pressure Mean 100 Blood Pressure Mean [Right Arm] 124 Blood Pressure Position Pulse Oximetry 98 97 Oxygen Delivery Method Room Air Room Air Sepsis Recent Fever Within 48 Hours Sepsis New/Unexplained Change in Mental Status Sepsis Action Taken by Nursing 07/15/25 18:00 Temperature Temperature Source Pulse Rate 59 L Pulse Rate [Left Apical] Pulse Rate from SpO2 Sensor Respiratory Rate 19 Respiratory Effort / Characteristics Respiratory Depth Respiratory Pattern Blood Pressure 146/86 H Blood Pressure [Right Arm] Blood Pressure Mean 106 Blood Pressure Mean [Right Arm] Blood Pressure Position Pulse Oximetry 96 Oxygen Delivery Method Room Air Sepsis Recent Fever Within 48 Hours Sepsis New/Unexplained Change in Mental Status Sepsis Action Taken by [facility] Medications Current Medication List: was personally reviewed by ks Laboratory Data Attestation: I reviewed the patient's lab results. 07/15/25 12:35 07/15/25 12:35 Lab Results 07/15/25 07/15/25 07/15/25 Range/Units 12:35 14:02 15:20 WBC 9.48 (4.8-10.8) K/ul RBC 5.34 (4.70-6.10) M/uL Hgb 15.9 (14.0-18.0) g/dl Hct 46.7 (42.0-52.0) % MCV 87.5 (80.0-100.0) fL MCH 29.8 (25.0-34.0) pg MCHC 34.0 (32.0-36.0) g/dL RDW Std Deviation 39.3 (36.4-46.3) fL RDW Coeff of Kath 12.2 (11.5-14.5) % Plt Count 288 (130-400) K/uL MPV 9.0 L (9.4-12.4) fL Immature Gran % (Auto) 0.3 % Neut % (Auto) 78.4 % Lymph % (Auto) 13.9 % [place] % (Auto) 6.9 % Eos % (Auto) 0.3 % Baso % (Auto) 0.2 % Neut # (Auto) 7.43 H (1.40-6.50) K/uL Lymph # (Auto) 1.32 (1.20-3.40) K/uL [place] # (Auto) 0.65 H (0.11-0.59) K/uL Eos # (Auto) 0.03 (0.00-0.50) K/uL Baso # (Auto) 0.02 (0.00-0.20) K/uL Immature Gran # (Auto) 0.03 (0.01-0.20) K/uL Sodium 135 L (136-145) mmol/L Potassium 4.6 (3.5-5.1) mmol/L Chloride 101 (98-107) mmol/L Carbon Dioxide 27 (21-32) mmol/L Anion Gap 7 (3-11) BUN 11 (6-23) mg/dl Creatinine 1.23 (0.6-1.4) mg/dl Est Cr Clr Drug Dosing 97.8 ml/min eGFR 83.55 BUN/Creatinine Ratio 8.9 L (10-20) Glucose 95 (70-99(Fasting)) mg/dl Calcium 10.2 (8.6-10.3) mg/dl Total Bilirubin 0.7 (0.2-1.0) mg/dl AST 26 (13-39) U/L ALT 16 (7-52) U/L Alkaline Phosphatase 68 (34-104) U/L Total Protein 8.4 H (6.0-8.3) gm/dl Albumin 5.0 (3.4-5.0) gm/dl Globulin 3.4 (2.5-4.0) gm/dl Albumin/Globulin Ratio 1.5 (0.9-2) Urine Color Urine Appearance (Clear) Urine pH (4.5-7.5) Ur Specific [place] (1.000-1.030) Urine Protein (Negative) Urine Glucose (UA) (Negative) Urine Ketones (Negative) Urine Blood (Negative) Urine Nitrite (Negative) Urine Bilirubin (Negative) Urine Urobilinogen (Negative) Ur Leukocyte Esterase (Negative) Urine Comment Fluid Comment CSF Appearance Clear CSF Color Colorless Xanthrochromic No xanthochromia CSF WBC 190 H* (0-5) CSF RBC 15 (0) CSF Cell Count Tube # 3 CSF Mononuclear WBCs % 98 % CSF Polynuclear WBCs % 2 % CSF Chemistry Tube # 1 CSF Glucose 54 (40-70) mg/dl CSF Total Protein 130.0 H (15-45) mg/dl CSF C.neoform/gat PCR (NotDetected) CSF CMV DNA (PCR) (NotDetected) CSF Enterovirus (PCR) (NotDetected) CSF E. coli K1 (PCR) (NotDetected) CSF H. influenzae (PCR) (NotDetected) CSF HSV I (PCR) (NotDetected) CSF HSV II (PCR) (NotDetected) CSF HHV 6 (PCR) (NotDetected) CSF L.monocytogenes PCR (NotDetected) CSF N. meningitidis PCR (NotDetected) CSF Parechovirus (PCR) (NotDetected) CSF S. agalactiae (PCR) (NotDetected) CSF S. pneumoniae (PCR) (NotDetected) CSF VZV DNA (PCR) (NotDetected) Anaplasma Smear See Comment Babesia Smear See Comment Lyme Disease Screen Negative (Negative) SARS-CoV-2 (PCR) NEGATIVE (Negative) Influenza Type A (PCR) Negative (Neg) Influenza Type B (PCR) Negative (Neg) RSV (RT-PCR) Negative (Neg) 07/15/25 07/15/25 Range/Units 15:20 17:42 WBC (4.8-10.8) K/ul RBC (4.70-6.10) M/uL Hgb (14.0-18.0) g/dl Hct (42.0-52.0) % MCV (80.0-100.0) fL MCH (25.0-34.0) pg MCHC (32.0-36.0) g/dL RDW Std Deviation (36.4-46.3) fL RDW Coeff of Kath (11.5-14.5) % Plt Count (130-400) K/uL MPV (9.4-12.4) fL Immature Gran % (Auto) % Neut % (Auto) % Lymph % (Auto) % [place] % (Auto) % Eos % (Auto) % Baso % (Auto) % Neut # (Auto) (1.40-6.50) K/uL Lymph # (Auto) (1.20-3.40) K/uL [place] # (Auto) (0.11-0.59) K/uL Eos # (Auto) (0.00-0.50) K/uL Baso # (Auto) (0.00-0.20) K/uL Immature Gran # (Auto) (0.01-0.20) K/uL Sodium (136-145) mmol/L Potassium (3.5-5.1) mmol/L Chloride (98-107) mmol/L Carbon Dioxide (21-32) mmol/L Anion Gap (3-11) BUN (6-23) mg/dl Creatinine (0.6-1.4) mg/dl Est Cr Clr Drug Dosing ml/min eGFR BUN/Creatinine Ratio (10-20) Glucose (70-99(Fasting)) mg/dl Calcium (8.6-10.3) mg/dl Total Bilirubin (0.2-1.0) mg/dl AST (13-39) U/L ALT (7-52) U/L Alkaline Phosphatase (34-104) U/L Total Protein (6.0-8.3) gm/dl Albumin (3.4-5.0) gm/dl Globulin (2.5-4.0) gm/dl Albumin/Globulin Ratio (0.9-2) Urine Color Yellow Urine Appearance Clear (Clear) Urine pH 5.5 (4.5-7.5) Ur Specific [place] 1.016 (1.000-1.030) Urine Protein Negative (Negative) Urine Glucose (UA) Negative (Negative) Urine Ketones 1+ H (Negative) Urine Blood Negative (Negative) Urine Nitrite Negative (Negative) Urine Bilirubin Negative (Negative) Urine Urobilinogen Negative (Negative) Ur Leukocyte Esterase Negative (Negative) Urine Comment Fluid Comment CSF Appearance CSF Color Xanthrochromic CSF WBC (0-5) CSF RBC (0) CSF Cell Count Tube # CSF Mononuclear WBCs % % CSF Polynuclear WBCs % % CSF Chemistry Tube # CSF Glucose (40-70) mg/dl CSF Total Protein Cancelled (15-45) mg/dl CSF C.neoform/gat PCR Not Detected (NotDetected) CSF CMV DNA (PCR) Not Detected (NotDetected) CSF Enterovirus (PCR) Not Detected (NotDetected) CSF E. coli K1 (PCR) Not Detected (NotDetected) CSF H. influenzae (PCR) Not Detected (NotDetected) CSF HSV I (PCR) Not Detected (NotDetected) CSF HSV II (PCR) DETECTED A* (NotDetected) CSF HHV 6 (PCR) Not Detected (NotDetected) CSF L.monocytogenes PCR Not Detected (NotDetected) CSF N. meningitidis PCR Not Detected (NotDetected) CSF Parechovirus (PCR) Not Detected (NotDetected) CSF S. agalactiae (PCR) Not Detected (NotDetected) CSF S. pneumoniae (PCR) Not Detected (NotDetected) CSF VZV DNA (PCR) Not Detected (NotDetected) Anaplasma Smear Babesia Smear Lyme Disease Screen (Negative) SARS-CoV-2 (PCR) (Negative) Influenza Type A (PCR) (Neg) Influenza Type B (PCR) (Neg) RSV (RT-PCR) (Neg) Administered Medications Ketorolac Tromethamine (Ketorolac Tromethamine 10 Mg Tablet) 10 mg PO Q4H PRN PRN Reason: Headache or Pain Stop: 07/20/25 20:03 Last Admin: 07/15/25 20:49 Dose: 10 mg Documented By: DENISHA Mirtazapine (Mirtazapine Soltab 15 Mg) 45 mg PO HS MEENA Stop: 08/14/25 20:59 Last Admin: 07/15/25 20:49 Dose: 45 mg Documented By: DENISHA Discontinued Medications Dexamethasone Sodium Phosphate (DexamethasonePf 10 Mg/Ml Vial) 6 mg IV NOW ONE Stop: 07/15/25 16:33 Last Admin: 07/15/25 17:39 Dose: 6 mg Documented By: BENNETT Diphenhydramine HCl (Diphenhydramine 50 Mg/Ml Vial) 12.5 mg IV NOW STA Stop: 07/15/25 14:20 Last Admin: 07/15/25 14:34 Dose: 12.5 mg Documented By: Sodium Chloride (Nss) 1,000 mls @ 999 mls/hr IV .Q1H1M ONE Stop: 07/15/25 15:19 Last Infusion: 07/15/25 15:40 Dose: Infused Documented By: [facility] Admin: 07/15/25 14:34 Dose: 999 mls/hr Documented By: Acetaminophen (Ofirmev) 1,000 mg in 100 mls @ 400 mls/hr IV NOW STA Stop: 07/15/25 14:33 Last Infusion: 07/15/25 15:33 Dose: Infused Documented By: [facility] Admin: 07/15/25 14:33 Dose: 400 mls/hr Documented By: Sodium Chloride (Nss) 500 mls @ 999 mls/hr IV .Q31M ONE Stop: 07/15/25 15:55 Last Infusion: 07/15/25 16:10 Dose: Infused Documented By: [facility] Admin: 07/15/25 15:35 Dose: 999 mls/hr Documented By: Ceftriaxone Sodium (Rocephin) 2,000 mg in 50 mls @ 100 mls/hr IV NOW STA Stop: 07/15/25 17:01 Last Infusion: 07/15/25 18:15 Dose: Infused Documented By: [facility] Admin: 07/15/25 17:43 Dose: 100 mls/hr Documented By: BENNETT Acyclovir Sodium 800 mg/ (Dextrose) 266 mls @ 250 mls/hr IV NOW STA; Protocol Stop: 07/15/25 18:10 Last Infusion: 07/15/25 19:25 Dose: Infused Documented By: r Admin: 07/15/25 17:55 Dose: 250 mls/hr Documented By: BENNETT Ketorolac Tromethamine (Ketorolac Tromethamine 15 Mg/Ml Vial) 10 mg IV NOW ONE Stop: 07/15/25 14:20 Last Admin: 07/15/25 14:34 Dose: 10 mg Documented By: Lidocaine HCl (Lidocaine 1% Local 20 Ml Vial) 30 ml INFIL NOW ONE Stop: 07/15/25 14:50 Last Admin: 07/15/25 15:35 Dose: 30 ml Documented By: Ondansetron HCl (Ondansetron Inj 2 Mg/Ml 2 Ml Vial) 4 mg IV NOW STA Stop: 07/15/25 14:20 Last Admin: 07/15/25 14:34 Dose: 4 mg Documented By: Imaging Data Radiologist's Impression: Head CT 07/15/25 13:53 CT SCAN OF THE BRAIN WITHOUT IV CONTRAST CLINICAL HISTORY: Headache. COMPARISON STUDY: CT and MRI of the brain dated 10/06/2023. TECHNIQUE: Unenhanced CT scan of the brain is performed from the vertex to the skull base. Images are reviewed in the axial, sagittal, and coronal planes. A dose lowering technique was utilized adhering to the principles of ALARA. CT DOSE: 625.8 mGy.cm FINDINGS: Brain parenchyma: The brain parenchyma is normal in appearance. There is no hemorrhage, mass effect, or evidence of acute territorial ischemia by CT criteria. Lutz-white matter differentiation is preserved. No extra-axial fluid collection is seen. Ventricles, sulci, cisterns: Normal in configuration. Intracranial vasculature: The visualized intracranial vasculature at the skull base is normal in appearance. Calvarium: Unremarkable. Sinuses and mastoids: There is moderate mucosal thickening within the right frontal sinus and the ethmoid sinuses. Mild mucosal thickening is seen within the left sphenoid sinus and the left frontal sinus. The mastoid air cells are well pneumatized. Orbits: The bony orbits are grossly intact. IMPRESSION: No acute intracranial abnormality. ACT 112: Negative or not required by law. Electronically signed by: Shubham Barr M.D. 07/15/2025 2:26 PM Discharge Plan Visit Data Chief Complaint: Illness Stated Complaint: HEADACHE, NECK PAIN, DIZZY, NAUSEA ED Provider: Shubham Cabral Discharge Problem: Headache, Meningitis Patient Disposition: Admitted As Inpatient Condition: Fair Discharge Instructions Interventions: ED Discharge Assessment Last Done: 07/15/25 20:07 Discharge Problem: Headache Qualifiers: Headache type: unspecified Headache chronicity pattern: acute headache I ntractability: intractable Qualified Code(s): R51.9 - Headache, unspecified
[2025-07-15 14:56] LABS: Influenza A virus by PCR Negative (Neg); Influenza B virus by PCR Negative (Neg); SARS CoV2 RNA(COVID-19) Ceph NEGATIVE (Negative)
[2025-07-15] MEDS: SODIUM CHLORIDE 0.9% 500 ML IV ONE (15:35)
[2025-07-15] MEDS: LIDOCAINE 1% LOCAL 20 ML VIAL INFIL ONE (15:35)
[2025-07-15 17:02] LABS: Cryptococcus neoformans/ga PCR Not Detected (NotDetected); Escherichia coli K1 PCR Not Detected (NotDetected); Haemophilius influenzae PCR Not Detected (NotDetected); Herpes Simplex Virus 1 PCR Not Detected (NotDetected); Human Herpes Virus 6 PCR Not Detected (NotDetected); Human Parechovirus PCR Not Detected (NotDetected); Listeria monocytogenes PCR Not Detected (NotDetected); Neisseria meningitidis PCR Not Detected (NotDetected); Streptococcus agalactiae PCR Not Detected (NotDetected); Streptococcus pneumoniae PCR Not Detected (NotDetected)
[2025-07-15 17:04] LABS: Herpes Simplex Virus 2 PCR DETECTED (NotDetected)
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
[2025-07-15] MEDS: dexAMETHasone**PF** 10 MG/ML VIAL IV ONE (17:39)
[2025-07-15 17:42] LABS: CSF Count Tube # 3; CSF Xanthrochromic No xanthochromia; Mononuclear WBC CSF Manual 98 %; Polynuclear WBC CSF Manual 2 %; Red Blood Cell CSF Manual 15 (0); White Blood Cell CSF Manual 190 (0-5)
[2025-07-15] MEDS: cefTRIAXone SODIUM 2,000 MG/50 ML BAG IV STA (17:43)
[2025-07-15] MEDS: ACYCLOVIR SOD 800 MG in DEXTROSE 5% 250 ML IV STA (17:55)
[2025-07-15 18:07] LABS: Appearance Urine Clear (Clear); Glucose Urine UA Negative (Negative)
[2025-07-15] MEDS ORDERED: POLYETHYLENE (MIRALAX) 17 GM PACK PO PRN (20:04)
[2025-07-15] MEDS ORDERED: ONDANSETRON INJ 2 MG/ML 2 ML VIAL IV PRN (20:04)
[2025-07-15] MEDS ORDERED: MAGNESIUM HYDROXIDE SUSP 30 ML UDC PO PRN (20:04)
[2025-07-15] MEDS ORDERED: ALUMINUM/MAGNESIUM SUSP 30 ML UDC PO PRN (20:04)
[2025-07-15] MEDS: MIRTAZAPINE SOLTAB 15 MG PO SCH (20:49)
[2025-07-15] MEDS: KETOROLAC TROMETHAMINE 10 MG TABLET PO PRN (20:49)
[2025-07-16] MEDS: ACYCLOVIR SOD IV SCH (02:49)
[2025-07-16] MEDS: DEXTROSE 5% IV SCH (02:49)
[2025-07-16 07:47] LABS: Hematocrit (blood only) 44.9 % (42.0-52.0); Hemoglobin 15.3 g/dl (14.0-18.0); Mean Corpuscular Hemoglobin 29.3 pg (25.0-34.0); Mean Corpuscular Volume 86.0 fL (80.0-100.0); Platelet Count 294 K/uL (130-400); RDW Standard Deviation 38.2 fL (36.4-46.3); Red Blood Count 5.22 M/uL (4.70-6.10); White Blood Count 10.59 K/ul (4.8-10.8)
[2025-07-16 08:03] LABS: Anion Gap 8.0 (3-11); Blood Urea Nitrogen 13.0 mg/dl (6-23); Calcium 9.5 mg/dl (8.6-10.3); Carbon Dioxide 24.0 mmol/L (21-32); Chloride 104.0 mmol/L (98-107); Creatinine Clr Calc Pharmacy 106.4 ml/min; Glucose 102.0 mg/dl (70-99(Fasting)); Potassium 4.5 mmol/L (3.5-5.1); Sodium 136.0 mmol/L (136-145)
[2025-07-16] MEDS: ACETAMINOPHEN 325 MG TAB PO PRN (09:38)
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
[2025-07-17 07:45] VITALS: RESP 16
[2025-07-17 07:55] LABS: Hematocrit (blood only) 40.8 % (42.0-52.0); Hemoglobin 14.6 g/dl (14.0-18.0); Immature Granulocytes # (auto) 0.02 K/uL (0.01-0.20); Immature Granulocytes % (auto) 0.2 %; Mean Corpuscular Hemoglobin 31.0 pg (25.0-34.0); Mean Corpuscular Volume 86.6 fL (80.0-100.0); Platelet Count 260 K/uL (130-400); RDW Standard Deviation 38.5 fL (36.4-46.3); Red Blood Count 4.71 M/uL (4.70-6.10); White Blood Count 9.65 K/ul (4.8-10.8)
[2025-07-17 08:30] LABS: Alanine Aminotransferase 10.0 U/L (7-52); Albumin Globulin Ratio 1.4 (0.9-2); Albumin Level 4.0 gm/dl (3.4-5.0); Alkaline Phosphatase 52.0 U/L (34-104); Anion Gap 5.0 (3-11); Bilirubin,Total 0.4 mg/dl (0.2-1.0); Blood Urea Nitrogen 16.0 mg/dl (6-23); Calcium 9.4 mg/dl (8.6-10.3); Carbon Dioxide 28.0 mmol/L (21-32); Chloride 107.0 mmol/L (98-107); Creatinine Clr Calc Pharmacy 87.2 ml/min; Globulin 2.9 gm/dl (2.5-4.0); Glucose 100.0 mg/dl (70-99(Fasting)); Potassium 4.1 mmol/L (3.5-5.1); Sodium 140.0 mmol/L (136-145); Total Protein 6.9 gm/dl (6.0-8.3)
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
[2025-07-17] MEDS: HYDROmorphone INJ 0.5 MG/0.5 ML SYR IV PRN (17:36)
[2025-07-18 07:06] LABS: Hematocrit (blood only) 43.0 % (42.0-52.0); Hemoglobin 15.1 g/dl (14.0-18.0); Immature Granulocytes # (auto) 0.01 K/uL (0.01-0.20); Immature Granulocytes % (auto) 0.1 %; Mean Corpuscular Hemoglobin 30.7 pg (25.0-34.0); Mean Corpuscular Volume 87.4 fL (80.0-100.0); Platelet Count 268 K/uL (130-400); RDW Standard Deviation 38.9 fL (36.4-46.3); Red Blood Count 4.92 M/uL (4.70-6.10); White Blood Count 7.93 K/ul (4.8-10.8)
[2025-07-18 07:32] LABS: Anion Gap 4.0 (3-11); Blood Urea Nitrogen 11.0 mg/dl (6-23); Calcium 9.4 mg/dl (8.6-10.3); Carbon Dioxide 30.0 mmol/L (21-32); Chloride 106.0 mmol/L (98-107); Creatinine Clr Calc Pharmacy 90.4 ml/min; Glucose 97.0 mg/dl (70-99(Fasting)); Potassium 4.2 mmol/L (3.5-5.1); Sodium 140.0 mmol/L (136-145)
[2025-07-18] MEDS: IBUPROFEN 600 MG TAB PO SCH (11:33)
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
[2025-07-18] MEDS ORDERED: ACYCLOVIR SOD 800 MG in DEXTROSE 5% 250 ML IV SCH (16:00)
[2025-07-19] MEDS ORDERED: ACYCLOVIR SOD 800 MG in DEXTROSE 5% 250 ML IV SCH
[2025-07-19 08:14] VITALS: TEMP 98.2; O2SAT 99
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
[2025-07-19 12:06] VITALS: BP 154/94; PULSE 74
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
== END 2025-07-19 15:46 | DRG 76 ==
LOC: ED 11:21 → SUATTDRO 18:01 → EDINP 18:01 → 3E 20:07